=== PATIENT | female | born 2000 | race Hispanic/Latino ===

== ENCOUNTER 2021-04-04 11:18 | Emergency (ER) | payer BC, OTHER ==
[2021-04-04] MEDS ORDERED: Dexamethasone 10 MG/ML VIAL ONE (12:34)
== END 2021-04-04 13:11 | disposition home or self-care (01) ==
LOC: ERS 11:18
DX: J02.0 Streptococcal pharyngitis (principal); F17.290 Nicotine dependence, other tobacco product, uncomplicated
CPT/HCPCS: 99283; J1100